=== PATIENT | male | born 1960 | race Asian ===

== ENCOUNTER 2020-07-17 07:31 | Day surgery (SDC) | payer OTHER ==
[2020-07-13 14:16] VITALS: BMI 28.1
[2020-07-17] MEDS ORDERED: LIDOCAINE HCL/PF 2% SDV 5ML VIAL ONE (07:51)
[2020-07-17] MEDS ORDERED: PROPOFOL 20 ML ONE ×3 (07:51)
[2020-07-17 09:33] VITALS: BP 124/78; PULSE 67; TEMP 98
== END 2020-07-17 09:34 | disposition home or self-care (01) ==
LOC: FASU-ENDO 07:31
PROVIDERS: ATTEND Internal Medicine Gastroenterology
PROC: 0DJD8ZZ Inspection of Lower Intestinal Tract, Via Natural or Artificial Opening Endoscopic (ICD-10-PCS; principal; 2020-07-17 08:31)
DX: Z12.11 Encounter for screening for malignant neoplasm of colon (principal); K57.30 Diverticulosis of large intestine without perforation or abscess without bleeding